=== PATIENT | male | born 1965 ===

== ENCOUNTER 2023-05-16 01:53 | Outpatient (REF) | payer BC, SELFPAY ==
[2023-05-16 10:06] LABS: Hematocrit 24.8 % (42.0-54.0); Hemoglobin 7.9 g/dL (14.0-18.0); Mean Corpuscular HGB Conc 31.9 g/dL (29.9-35.2); Mean Corpuscular Hemoglobin 27.1 pg (25.9-34.0); Mean Corpuscular Volume 85.2 fL (80.0-94.0); Mean Platelet Volume 8.5 fL (9.5-13.5); Platelet Count 352 10^3/uL (150-450); Red Blood Count 2.91 10^6/uL (4.70-6.10); Red Cell Distribution Width 15.8 % (11.0-15.0); White Blood Count 9.1 10^3/uL (4.0-11.0)
[2023-05-16 10:22] LABS: Eosinophils Absolute Manual 0.09 10^3/uL (0.00-0.70); Lymphocytes Absolute Manual 0.91 10^3/uL (1.20-3.80); Metamyelocytes Absolute Manual 0.27; Monocytes Absolute Manual 0.81 10^3/uL (0.30-0.80); Segmented Neut Absolute Manual 6.37 10^3/uL (1.4-6.5)
[2023-05-16 10:23] LABS: Anisocytosis 1+
[2023-05-16 11:03] LABS: Alanine Aminotransferase 7 U/L (16-63); Albumin Globulin Ratio 0.3; Albumin Level 1.5 g/dL (3.4-5.0); Alkaline Phosphatase 134 U/L (46-116); Anion Gap 16.5; Aspartate Amino Transferase 21 U/L (15-37); BUN Creatinine Ratio 17.8; Bilirubin Total 0.3 mg/dL (0.2-1.0); Calcium 8.1 mg/dL (8.5-10.1); Carbon Dioxide 25.3 mmol/L (21.0-32.0); Chloride 97 mmol/L (98-107); Chol HDL Ratio 5.9; Cholesterol 112 mg/dL (<=200); Estimated GFR (African America >60 (>=60); Estimated GFR (Non-African Ame >60 (>=60); Globulin 5.1 g/dL; Glucose 73 mg/dL (74-106); HDL Cholesterol 19 mg/dL (40-60); Magnesium 1.3 mg/dL (1.8-2.4); Sodium 136 mmol/L (136-145); Total Protein 6.6 g/dL (6.4-8.2); Triglycerides 174 mg/dL (<=150); VLDL CHOLESTEROL 34.8 mg/dL
[2023-05-16 13:15] LABS: Estimated Average Glucose 68 mg/dL
[2023-05-16 14:26] LABS: Potassium 2.8 mmol/L (3.5-5.1)
== END 2023-05-16 01:54 | disposition home or self-care (01) ==
LOC: LAB 01:53
PROVIDERS: PCP Family Medicine; Visit Provider Family Medicine
DX: E11.9 Type 2 diabetes mellitus without complications (principal); D50.9 Iron deficiency anemia, unspecified; G06.1 Intraspinal abscess and granuloma; T81.49XD Infection following a procedure, other surgical site, subsequent encounter
CPT/HCPCS: 36415; 80053; 80061; 82306; 83036; 83735; 85007; 85025

== ENCOUNTER 2023-05-18 03:13 | Outpatient (REF) | payer BC, SELFPAY ==
[2023-05-18 08:02] LABS: Anion Gap 12.8; BUN Creatinine Ratio 15.2; Calcium 8.1 mg/dL (8.5-10.1); Carbon Dioxide 27.1 mmol/L (21.0-32.0); Chloride 98 mmol/L (98-107); Estimated GFR (African America >60 (>=60); Estimated GFR (Non-African Ame >60 (>=60); Glucose 85 mg/dL (74-106); Potassium 3.9 mmol/L (3.5-5.1); Sodium 134 mmol/L (136-145)
== END 2023-05-18 03:14 | disposition home or self-care (01) ==
LOC: LAB 03:13
PROVIDERS: PCP Family Medicine; Visit Provider Family Medicine
DX: E87.6 Hypokalemia (principal)
CPT/HCPCS: 36415; 80048

== ENCOUNTER 2023-05-20 01:28 | Outpatient (REF) | payer BC, SELFPAY ==
[2023-05-20 10:59] LABS: BUN Creatinine Ratio 10.5; Calcium 8.5 mg/dL (8.5-10.1); Carbon Dioxide 27.2 mmol/L (21.0-32.0); Chloride 99 mmol/L (98-107); Estimated GFR (African America >60 (>=60); Estimated GFR (Non-African Ame >60 (>=60); Glucose 78 mg/dL (74-106); Potassium 4.2 mmol/L (3.5-5.1); Sodium 136 mmol/L (136-145)
== END 2023-05-20 01:29 | disposition home or self-care (01) ==
LOC: LAB 01:28
PROVIDERS: PCP Family Medicine
DX: E11.9 Type 2 diabetes mellitus without complications (principal); K63.1 Perforation of intestine (nontraumatic)
CPT/HCPCS: 36415; 80048

== ENCOUNTER 2023-05-27 02:29 | Outpatient (REF) | payer BC, SELFPAY ==
[2023-05-27 10:52] LABS: Basophils Absolute Auto 0.1 10^3/uL (0.0-0.1); Eosinophils Absolute Auto 0.1 10^3/uL (0.0-0.7); Eosinophils Percent Auto 1.6 % (0.9-7.0); Hematocrit 31.8 % (42.0-54.0); Hemoglobin 10.1 g/dL (14.0-18.0); Immature Granulocytes Abs Auto 0.12 10^3/uL (0.00-0.03); Immature Granulocytes Pct Auto 1.9 % (0.0-0.5); Lymphocytes Percent Auto 15.3 % (20.5-60.0); Mean Corpuscular HGB Conc 31.8 g/dL (29.9-35.2); Mean Corpuscular Hemoglobin 26.9 pg (25.9-34.0); Mean Corpuscular Volume 84.8 fL (80.0-94.0); Mean Platelet Volume 9.3 fL (9.5-13.5); Monocytes Absolute Auto 0.8 10^3/uL (0.3-0.8); Monocytes Percent Auto 11.9 % (1.7-12.0); Neutrophils Absolute Auto 4.3 10^3/uL (1.4-6.5); Neutrophils Percent Auto 68.3 % (43.0-75.0); Platelet Count 205 10^3/uL (150-450); Red Blood Count 3.75 10^6/uL (4.70-6.10); Red Cell Distribution Width 16.1 % (11.0-15.0); White Blood Count 6.3 10^3/uL (4.0-11.0)
[2023-05-27 11:04] LABS: Anion Gap 11.5; BUN Creatinine Ratio 27.5; Calcium 8.9 mg/dL (8.5-10.1); Carbon Dioxide 28.6 mmol/L (21.0-32.0); Chloride 97 mmol/L (98-107); Estimated GFR (African America >60 (>=60); Estimated GFR (Non-African Ame >60 (>=60); Glucose 87 mg/dL (74-106); Potassium 3.1 mmol/L (3.5-5.1); Sodium 134 mmol/L (136-145)
== END 2023-05-27 02:30 | disposition home or self-care (01) ==
LOC: LAB 02:29
PROVIDERS: PCP Family Medicine; Visit Provider Family Medicine
DX: T81.49XD Infection following a procedure, other surgical site, subsequent encounter (principal); D50.9 Iron deficiency anemia, unspecified
CPT/HCPCS: 36415; 80048; 85025

== ENCOUNTER 2023-05-30 10:25 | Emergency (ER) | payer BC, SELFPAY ==
[2023-05-30] VITALS (20 sets, daily range): BP systolic 90–131; BP diastolic 67–108; PULSE 118–143; RESP 12–29; TEMP 36.6; O2SAT 95–100; BMI 23.0
--- NOTE | 2023-05-30 10:18 | ECG_ITS ---
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
--- NOTE | 2023-05-30 10:18 | CT_ITS ---
The [address] [address] Patient Name: JOHNY BERUMEN MRN: [id number] date: 1965 Sex: M Assigned Patient Location: ER Current Patient Location: ER Accession/Order Number: [id number] Exam Date: 05/30/2023 11:35 Report Date: 05/30/2023 12:12 At the request of: BELINDA MUHAMMAD Procedure: CT abdomen pelvis w con EXAM: CT abdomen pelvis w con HISTORY: recent surgery, can't eat abdominal pain COMPARISON: CT abdomen and pelvis 04/23/2013. TECHNIQUE: Following the intravenous administration of 99 mL of Omnipaque 350, axial soft tissue windows of the abdomen and pelvis were performed with coronal and sagittal reformats. CT dose reduction technique was used including Automated Exposure Control. Findings: There are patchy left lower lobe groundglass opacities with mucous plugging of the adjacent airways. Right lower lobe 1.0 cm nodule. ABDOMEN: There are couple scattered low-attenuation lesions, too small to characterize. The spleen, pancreas, and adrenal glands are unremarkable. There are multiple stones within the gallbladder. Punctate nonobstructing bilateral renal stones. No renal collecting system dilatation. Bilateral low-attenuation lesions, too small to characterize. The visualized portions of the bilateral ureters are nondilated. Evaluation of the bowel is limited given the absence of oral contrast. 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 No bowel obstruction. The aorta is normal caliber. Mild atherosclerotic disease. No enlarged abdominal lymph nodes. Trace amount of free abdominal fluid. Postsurgical changes involving the midline anterior abdominal wall. Pelvis: Small stones within the bladder. The prostate is mildly enlarged. No enlarged pelvic lymph nodes or free pelvic fluid. No aggressive sclerotic or lytic osseous lesions. Multilevel degenerative spondylosis. CT/CT abdomen pelvis w con IMPRESSION: 1. 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 No bowel obstruction. 2. Cholelithiasis. 3. Nonobstructing renal stones. 4. Stones within the bladder. Electronically authenticated by: CRISTIAN STRICKLAND Date: 05/30/2023 12:12
--- NOTE | 2023-05-30 10:18 | XR_ITS ---
The [address] [address] Patient Name: JOHNY BREUMEN MRN: [id number] date: 1965 Sex: M Assigned Patient Location: ER Current Patient Location: ED.MAIN Accession/Order Number: [id number] Exam Date: 05/30/2023 10:36 Report Date: 05/30/2023 11:04 At the request of: BELINDA MUHAMMAD Procedure: XR chest 1V EXAMINATION: XR chest 1V HISTORY: weak ; weakness increasing in severity COMPARISON: No relevant comparison available. FINDINGS: LUNGS: Underexpanded lungs. No significant pulmonary parenchymal abnormalities. VASCULATURE: No increased pulmonary vasculature. PLEURA: No pneumothorax, effusion, or pleural thickening. CARDIAC: No cardiomegaly or cardiac silhouette abnormality. MEDIASTINUM: No visible mass or adenopathy. BONES: No fracture or visible bone lesion. OTHER: Negative. IMPRESSION: 1. No acute cardiopulmonary process, significant chronic changes, or suspicious findings. Electronically authenticated by: JENNY ROSA Date: 05/30/2023 11:04
--- NOTE | 2023-05-30 10:21 | ED.GENADUL1 ---
HPI - General Adult General Chief complaint: Weakness Stated complaint: GENERAL WEAKNESS Time Seen by Provider: 05/30/23 10:32 History of Present Illness HPI narrative: 58-year-old male presents for evaluation. He comes in from [facility]. He is not really sure why he is here. He states he can't eat. He recently had bowel surgery for perforation and has an ostomy and an open wound on his abdomen. He is not sure how long its been since he's been able to eat. He hasn't had a known fever. He was noted to have a fast heartbeat. He doesn't seem to be complaining of abdominal pain or shortness of breath. Related Data Allergies Allergy/AdvReac Type Severity Reaction Status Date / Time No Known Drug Allergies Allergy Verified 05/30/23 10:14 Review of Systems ROS Narrative A ten point review of systems is negative except as noted above. Constitutional Reports: fatigue [facility] Medical History (Updated 05/30/23 @ 14:26 by Kartik Souza MD) Social History Smoking status: Former smoker Exam Narrative Exam Narrative: Nurses note and vital signs reviewed and patient is not hypoxic. General: The patient appears chronically ill. He appears fatigued. Skin: Warm, dry, no pallor noted. There is no rash noted. Head: Normocephalic, atraumatic Eye: Normal conjunctiva, no drainage Ears, Nose, Mouth, and Throat: oral mucosa is dry, Nares patent. Cardiovascular: Regular Rate and Rhythm, and tachycardic Respiratory: Patient is in no distress, no accessory muscle use, lungs are clear to auscultation, no wheezing, rales or rhonchi Back: non-tender GI: ileostomy in place with liquid stool. Open wound present on the abdomen. No purulent drainage or surrounding erythema Musculoskeletal: The patient has no evidence of calf tenderness, no pitting edema, symmetrical pulses noted bilaterally Neurological: awake and alert Psychiatric: Cooperative Constitutional Vital Signs, click to edit/add: Last Vital Signs Temp 97.8 F 05/30/23 10:15 Pulse 118 H 05/30/23 13:45 Resp 15 05/30/23 13:45 BP 131/108 H 05/30/23 13:45 Pulse Ox 99 05/30/23 13:45 O2 Del Method Room Air 05/30/23 10:48 Course Vital Signs Vital signs: Vital Signs Temperature 97.8 F 05/30/23 10:15 Pulse Rate 143 H 05/30/23 10:15 Respiratory Rate 16 05/30/23 10:15 Blood Pressure 96/69 05/30/23 10:15 Pulse Oximetry 96 05/30/23 10:15 Oxygen Delivery Method Room Air 05/30/23 10:15 Temperature 97.8 F 05/30/23 10:15 Pulse Rate 118 H 05/30/23 13:45 Respiratory Rate 15 05/30/23 13:45 Blood Pressure 131/108 H 05/30/23 13:45 Pulse Oximetry 99 05/30/23 13:45 Oxygen Delivery Method Room Air 05/30/23 10:48 Medical Decision Making MDM Narrative Medical decision making narrative: the patient presented with tachycardia and marginal blood pressure with a systolic of ninety. He was given 2 L of IV fluid and his heart rate is coming down and his blood pressure has come up. White count is eighteen thousand, lactic acid 3.0, just above the upper limit of normal. CAT scan shows no evidence of perforation and chest x-ray shows no infiltrate. he was given IV Zosyn and vancomycin and I've spoken to senior training specialist at [facility] who accepts the patient, Dr. James. The patient is agreeable for transfer. Differential Diagnosis Differential Diagnosis: sepsis Medical Records Medical records reviewed: Yes I reviewed the patient's medical records Lab Data Lab results reviewed: Yes I reviewed the patient's lab results Labs: Lab Results 05/30/23 05/30/23 Range/Units 10:20 11:00 WBC 18.4 H (4.0-11.0) 10^3/uL RBC 4.96 (4.70-6.10) 10^6/uL Hgb 13.3 L (14.0-18.0) g/dL Hct 41.5 L (42.0-54.0) % MCV 83.7 (80.0-94.0) fL MCH 26.8 (25.9-34.0) pg MCHC 32.0 (29.9-35.2) g/dL RDW 16.0 H (11.0-15.0) % Plt Count 349 (150-450) 10^3/uL MPV 9.6 (9.5-13.5) fL Neut % (Auto) 90.1 H (43.0-75.0) % Lymph % (Auto) 3.6 L (20.5-60.0) % [place] % (Auto) 5.5 (1.7-12.0) % Eos % (Auto) 0.0 L (0.9-7.0) % Baso % (Auto) 0.3 (0.2-2.0) % Neut # (Auto) 16.6 H (1.4-6.5) 10^3/uL Lymph # (Auto) 0.7 L (1.2-3.8) 10^3/uL [place] # (Auto) 1.0 H (0.3-0.8) 10^3/uL Eos # (Auto) 0.0 (0.0-0.7) 10^3/uL Baso # (Auto) 0.1 (0.0-0.1) 10^3/uL Abs Immat Gran (auto) 0.10 H (0.00-0.03) 10^3/uL Imm/Tot Granulo (auto) 0.5 (0.0-0.5) % Lactate 3.0 H* (0.4-2.0) mmol/L Total Bilirubin 0.6 (0.2-1.0) mg/dL Direct Bilirubin 0.1 (0.0-0.2) mg/dL AST 17 (15-37) U/L ALT 8 L (16-63) U/L Alkaline Phosphatase 148 H (46-116) U/L Troponin I High Sens <4.0 L (4.0-76.1) pg/mL Total Protein 8.7 H (6.4-8.2) g/dL Albumin 3.0 L (3.4-5.0) g/dL Globulin 5.7 g/dL Albumin/Globulin Ratio 0.5 Amylase 60 (25-115) U/L Lipase 140.0 (73.0-393.0) U/L C. difficile Toxin PCR Negative (NEGATIVE) Critical Care Time Critical Care Time Critical Care Time: Yes Total Critical Care Time: 50 Attestation: due to the high probability of sudden and clinically significant deterioration in the patient's condition critical care time was necessary. He was hypotensive and tachycardic and has sepsis. Discharge Plan Discharge Chief Complaint: Weakness Clinical Impression: Sepsis Patient Disposition: [facility] Time of Disposition Decision: 14:25 Discharge Location: [facility] Condition: Fair Mode of Transportation: EMS
[2023-05-30] MEDS: 0.9 % SODIUM CHLORIDE 1,000 ML 1000 ML IV ×2 (10:42→13:43)
[2023-05-30] MEDS: ONDANSETRON PF 4 MG/2 ML VIAL IV (10:42)
[2023-05-30 10:45] LABS: Basophils Absolute Auto 0.1 10^3/uL (0.0-0.1); Basophils Percent Auto 0.3 % (0.2-2.0); Hematocrit 41.5 % (42.0-54.0); Hemoglobin 13.3 g/dL (14.0-18.0); Immature Granulocytes Pct Auto 0.5 % (0.0-0.5); Lymphocytes Absolute Auto 0.7 10^3/uL (1.2-3.8); Lymphocytes Percent Auto 3.6 % (20.5-60.0); Mean Corpuscular Hemoglobin 26.8 pg (25.9-34.0); Mean Corpuscular Volume 83.7 fL (80.0-94.0); Mean Platelet Volume 9.6 fL (9.5-13.5); Monocytes Percent Auto 5.5 % (1.7-12.0); Neutrophils Absolute Auto 16.6 10^3/uL (1.4-6.5); Neutrophils Percent Auto 90.1 % (43.0-75.0); Platelet Count 349 10^3/uL (150-450); Red Blood Count 4.96 10^6/uL (4.70-6.10); White Blood Count 18.4 10^3/uL (4.0-11.0)
[2023-05-30 11:02] LABS: Alanine Aminotransferase 8 U/L (16-63); Albumin Globulin Ratio 0.5; Alkaline Phosphatase 148 U/L (46-116); Amylase 60 U/L (25-115); Aspartate Amino Transferase 17 U/L (15-37); Bilirubin Direct 0.1 mg/dL (0.0-0.2); Bilirubin Total 0.6 mg/dL (0.2-1.0); Globulin 5.7 g/dL; Total Protein 8.7 g/dL (6.4-8.2); Troponin I High Sensitivity <4.0 pg/mL (4.0-76.1)
--- NOTE | 2023-05-30 11:50 | PC.NURSE ---
ileostomy RLQ -- EMPTIED. stool is green and loose. sample collected per physician's order
[2023-05-30 12:38] LABS: C. Difficile PCR NEGATIVE (NEGATIVE)
[2023-05-30] MEDS: PIPERACILLIN SODIUM/TAZOBACTAM 3.375 GM in 0.9 % SODIUM CHLORIDE 50 ML IV (13:43)
[2023-05-30 14:36] LABS: Alanine Aminotransferase 13 U/L (16-63); Albumin Globulin Ratio 0.5; Albumin Level 3.1 g/dL (3.4-5.0); Alkaline Phosphatase 146 U/L (46-116); Anion Gap 22.9; Aspartate Amino Transferase 25 U/L (15-37); BUN Creatinine Ratio 16.4; Bilirubin Total 0.4 mg/dL (0.2-1.0); Calcium 9.8 mg/dL (8.5-10.1); Carbon Dioxide 20.7 mmol/L (21.0-32.0); Chloride 94 mmol/L (98-107); Estimated GFR (African America >60 (>=60); Estimated GFR (Non-African Ame 58 (>=60); Globulin 5.7 g/dL; Glucose 249 mg/dL (74-106); Potassium 5.6 mmol/L (3.5-5.1); Sodium 132 mmol/L (136-145); Total Protein 8.8 g/dL (6.4-8.2)
[2023-05-30] MEDS: VANCOMYCIN HCL 2,000 MG in 0.9 % SODIUM CHLORIDE 500 ML 250 MG IV (14:44)
--- NOTE | 2023-05-30 16:16 | PC.NURSE ---
1500 - Pt has lower abd wound site from bowel perf correction in March - -pt also has ileostomy RLQ. Bag leaked into wound at this time. Old dressing removed, cleaned and new one placed. Sodium chloride irrigation used with non-adherant gauze pad (wet to dry) placed.
[2023-05-30] MEDS: 0.9 % SODIUM CHLORIDE 1,000 ML 200 ML IV (16:25)
[2023-05-30] MEDS: INSULIN REGULAR 300 UNITS/3 ML 10 UNIT INJ (16:25)
[2023-05-30] MEDS: DEXTROSE 50 %-WATER 25 GM/50 ML SYRINGE IV (16:25)
[2023-05-30 16:54] LABS: Bilirubin Urine MODERATE (NEGATIVE); Blood Urine NEGATIVE (NEGATIVE); Glucose Urine UA NEGATIVE (NEGATIVE); Ketones Urine TRACE mg/dL (NEGATIVE); Leukocyte Esterase Urine NEGATIVE (NEGATIVE); Nitrite Urine NEGATIVE (NEGATIVE); Protein Urine 100 mg/dL (NEG/TRACE); Specific Gravity Urine 1.015 (1.005-1.025); Urobilinogen Urine 0.2 EU/dL (0.2-1.0)
--- NOTE | 2023-05-30 16:57 | PC.NURSE ---
Bedside report to [facility] -- pt denies needing anyone called for him. Belongings packaged in bag and sent with patient.
[2023-05-30 17:00] LABS: Clarity Urine SLIGHTLY CLOUDY (CLEAR); Color Urine DK YELLOW (YELLOW); Urine Microscopic Indicated YES
[2023-05-30 17:01] LABS: Bacteria Urine NONE SEEN #/HPF (NONE SEEN); Cast Seen? SEEN #/LPF (NONE SEEN); Crystals Seen? None Seen #/HPF (None Seen); Mucus Urine NONE SEEN (NONE SEEN); RBC Urine NONE SEEN #/HPF (0-2); Squamous Epithelial Cell Urine RARE #/LPF (NONE/RARE); WBC Urine NONE SEEN #/HPF (NONE SEEN)
[2023-05-30 17:02] LABS: Hyaline Casts Urine FEW; Urine Culture Indicated NO
== END 2023-05-30 17:01 | disposition short-term general hospital (02) ==
PROVIDERS: Emergency Provider Emergency Medicine; PCP Family Medicine
DX: A41.9 Sepsis, unspecified organism (principal); Z93.2 Ileostomy status
CPT/HCPCS: 36415; 36591; 71045; 74177; 80048; 80053; 80076; 81003; 81015; 82150; 83605; 83690; 84484; 85025; 87040; 87045; 87493; 93005; 96365; 96366; 96367; 96375; 99285; J3370; Q9967

== ENCOUNTER 2023-06-20 00:57 | Outpatient (REF) | payer BC, SELFPAY ==
[2023-06-20 08:10] LABS: Basophils Absolute Auto 0.1 10^3/uL (0.0-0.1); Basophils Percent Auto 0.8 % (0.2-2.0); Eosinophils Absolute Auto 0.2 10^3/uL (0.0-0.7); Eosinophils Percent Auto 2.1 % (0.9-7.0); Hematocrit 37.4 % (42.0-54.0); Hemoglobin 12.2 g/dL (14.0-18.0); Immature Granulocytes Abs Auto 0.07 10^3/uL (0.00-0.03); Lymphocytes Absolute Auto 1.6 10^3/uL (1.2-3.8); Lymphocytes Percent Auto 22.7 % (20.5-60.0); Mean Corpuscular HGB Conc 32.6 g/dL (29.9-35.2); Mean Corpuscular Hemoglobin 26.1 pg (25.9-34.0); Mean Corpuscular Volume 79.9 fL (80.0-94.0); Mean Platelet Volume 9.3 fL (9.5-13.5); Monocytes Absolute Auto 0.8 10^3/uL (0.3-0.8); Monocytes Percent Auto 10.6 % (1.7-12.0); Neutrophils Absolute Auto 4.4 10^3/uL (1.4-6.5); Neutrophils Percent Auto 62.8 % (43.0-75.0); Platelet Count 260 10^3/uL (150-450); Red Blood Count 4.68 10^6/uL (4.70-6.10); Red Cell Distribution Width 14.6 % (11.0-15.0); White Blood Count 7.1 10^3/uL (4.0-11.0)
[2023-06-20 11:44] LABS: Alanine Aminotransferase 12 U/L (16-63); Albumin Globulin Ratio 0.8; Alkaline Phosphatase 121 U/L (46-116); Anion Gap 15.1; Aspartate Amino Transferase 18 U/L (15-37); BUN Creatinine Ratio 44.2; Bilirubin Total 0.2 mg/dL (0.2-1.0); Calcium 9.4 mg/dL (8.5-10.1); Chloride 94 mmol/L (98-107); Estimated GFR (African America >60 (>=60); Estimated GFR (Non-African Ame >60 (>=60); Glucose 92 mg/dL (74-106); Magnesium 1.6 mg/dL (1.8-2.4); Potassium 3.1 mmol/L (3.5-5.1); Sodium 130 mmol/L (136-145)
== END 2023-06-20 00:58 | disposition home or self-care (01) ==
LOC: LAB 00:57
PROVIDERS: PCP Family Medicine; Visit Provider Family Medicine
DX: E11.9 Type 2 diabetes mellitus without complications (principal); E55.9 Vitamin D deficiency, unspecified
CPT/HCPCS: 36415; 80053; 82306; 83735; 85025

== ENCOUNTER 2023-06-22 06:40 | Outpatient (REF) | payer BC, SELFPAY ==
[2023-06-22 10:06] LABS: Anion Gap 12.3; BUN Creatinine Ratio 34.3; Calcium 10.4 mg/dL (8.5-10.1); Carbon Dioxide 28.5 mmol/L (21.0-32.0); Chloride 96 mmol/L (98-107); Estimated GFR (African America >60 (>=60); Estimated GFR (Non-African Ame >60 (>=60); Glucose 98 mg/dL (74-106); Potassium 4.8 mmol/L (3.5-5.1); Sodium 132 mmol/L (136-145)
== END 2023-06-22 06:41 | disposition home or self-care (01) ==
LOC: LAB 06:40
PROVIDERS: PCP Family Medicine; Visit Provider Family Medicine
DX: E87.6 Hypokalemia (principal)
CPT/HCPCS: 36415; 80048

== ENCOUNTER 2023-06-24 02:17 | Outpatient (REF) | payer BC, SELFPAY ==
[2023-06-24 10:26] LABS: Anion Gap 8.7; BUN Creatinine Ratio 36.4; Carbon Dioxide 25.8 mmol/L (21.0-32.0); Chloride 103 mmol/L (98-107); Estimated GFR (African America >60 (>=60); Estimated GFR (Non-African Ame >60 (>=60); Glucose 112 mg/dL (74-106); Potassium 3.5 mmol/L (3.5-5.1); Sodium 134 mmol/L (136-145)
== END 2023-06-24 02:18 | disposition home or self-care (01) ==
LOC: LAB 02:17
PROVIDERS: PCP Family Medicine; Visit Provider Family Medicine
DX: E87.6 Hypokalemia (principal)
CPT/HCPCS: 36415; 80048

== ENCOUNTER 2023-06-29 04:30 | Outpatient (REF) | payer BC, SELFPAY ==
[2023-06-29 15:55] LABS: Basophils Percent Auto 0.2 % (0.2-2.0); Eosinophils Percent Auto 0.7 % (0.9-7.0); Hematocrit 30.5 % (42.0-54.0); Hemoglobin 9.9 g/dL (14.0-18.0); Immature Granulocytes Abs Auto 0.03 10^3/uL (0.00-0.03); Immature Granulocytes Pct Auto 0.7 % (0.0-0.5); Lymphocytes Absolute Auto 0.6 10^3/uL (1.2-3.8); Lymphocytes Percent Auto 13.7 % (20.5-60.0); Mean Corpuscular HGB Conc 32.5 g/dL (29.9-35.2); Mean Corpuscular Hemoglobin 26.3 pg (25.9-34.0); Mean Corpuscular Volume 81.1 fL (80.0-94.0); Mean Platelet Volume 10.3 fL (9.5-13.5); Monocytes Absolute Auto 0.1 10^3/uL (0.3-0.8); Monocytes Percent Auto 2.4 % (1.7-12.0); Neutrophils Absolute Auto 3.4 10^3/uL (1.4-6.5); Neutrophils Percent Auto 82.3 % (43.0-75.0); Platelet Count 136 10^3/uL (150-450); Red Blood Count 3.76 10^6/uL (4.70-6.10); Red Cell Distribution Width 14.6 % (11.0-15.0); White Blood Count 4.2 10^3/uL (4.0-11.0)
[2023-06-29 16:16] LABS: Alanine Aminotransferase 31 U/L (16-63); Albumin Globulin Ratio 0.7; Albumin Level 2.4 g/dL (3.4-5.0); Alkaline Phosphatase 108 U/L (46-116); Anion Gap 10.5; Aspartate Amino Transferase 49 U/L (15-37); BUN Creatinine Ratio 44.4; Bilirubin Total 0.2 mg/dL (0.2-1.0); Calcium 8.5 mg/dL (8.5-10.1); Carbon Dioxide 26.9 mmol/L (21.0-32.0); Chloride 104 mmol/L (98-107); Estimated GFR (African America >60 (>=60); Estimated GFR (Non-African Ame >60 (>=60); Globulin 3.5 g/dL; Glucose 144 mg/dL (74-106); Magnesium 1.1 mg/dL (1.8-2.4); Phosphorus 3.3 mg/dL (2.6-4.7); Potassium 3.4 mmol/L (3.5-5.1); Prealbumin 19.3 mg/dL (20.9-45.5); Sodium 138 mmol/L (136-145); Total Protein 5.9 g/dL (6.4-8.2); Triglycerides 157 mg/dL (<=150)
== END 2023-06-29 04:31 | disposition home or self-care (01) ==
LOC: LAB 04:30
PROVIDERS: PCP Family Medicine; Visit Provider Family Medicine
DX: Z79.899 Other long term (current) drug therapy (principal); D50.9 Iron deficiency anemia, unspecified; A41.9 Sepsis, unspecified organism; E55.9 Vitamin D deficiency, unspecified; E43 Unspecified severe protein-calorie malnutrition
CPT/HCPCS: 36415; 80053; 83735; 84100; 84134; 84478; 85014; 85018; 85025

== ENCOUNTER 2023-07-06 02:32 | Outpatient (REF) | payer BC, SELFPAY ==
[2023-07-06 07:51] LABS: Hematocrit 25.5 % (42.0-54.0); Hemoglobin 8.3 g/dL (14.0-18.0)
[2023-07-06 08:21] LABS: Alanine Aminotransferase 13 U/L (16-63); Albumin Globulin Ratio 0.8; Albumin Level 2.3 g/dL (3.4-5.0); Alkaline Phosphatase 91 U/L (46-116); Anion Gap 9.6; Aspartate Amino Transferase 15 U/L (15-37); BUN Creatinine Ratio 44.2; Bilirubin Total 0.2 mg/dL (0.2-1.0); Calcium 8.3 mg/dL (8.5-10.1); Carbon Dioxide 26.5 mmol/L (21.0-32.0); Chloride 103 mmol/L (98-107); Estimated GFR (African America >60 (>=60); Estimated GFR (Non-African Ame >60 (>=60); Globulin 2.9 g/dL; Glucose 157 mg/dL (74-106); Magnesium 1.9 mg/dL (1.8-2.4); Phosphorus 3.4 mg/dL (2.6-4.7); Potassium 3.1 mmol/L (3.5-5.1); Prealbumin 22.4 mg/dL (20.9-45.5); Sodium 136 mmol/L (136-145); Total Protein 5.2 g/dL (6.4-8.2); Triglycerides 143 mg/dL (<=150)
== END 2023-07-06 02:33 | disposition home or self-care (01) ==
LOC: LAB 02:32
PROVIDERS: PCP Family Medicine; Visit Provider Family Medicine
DX: Z79.899 Other long term (current) drug therapy (principal)
CPT/HCPCS: 36415; 80053; 83735; 84100; 84134; 84478; 85014; 85018

== ENCOUNTER 2023-07-14 00:15 | Outpatient (REF) | payer BC, SELFPAY ==
[2023-07-14 01:09] LABS: Albumin Level 2.7 g/dL (3.4-5.0); Alkaline Phosphatase 91 U/L (46-116); Anion Gap 3.7; Aspartate Amino Transferase 7 U/L (15-37); BUN Creatinine Ratio 48.9; Bilirubin Total 0.2 mg/dL (0.2-1.0); Calcium 8.3 mg/dL (8.5-10.1); Carbon Dioxide 29.1 mmol/L (21.0-32.0); Chloride 98 mmol/L (98-107); Estimated GFR (African America >60 (>=60); Estimated GFR (Non-African Ame >60 (>=60); Globulin 2.8 g/dL; Glucose 131 mg/dL (74-106); Magnesium 2.3 mg/dL (1.8-2.4); Phosphorus 3.1 mg/dL (2.6-4.7); Potassium 3.8 mmol/L (3.5-5.1); Prealbumin 23.2 mg/dL (20.9-45.5); Sodium 127 mmol/L (136-145); Total Protein 5.5 g/dL (6.4-8.2); Triglycerides 105 mg/dL (<=150)
[2023-07-14 01:10] LABS: Hematocrit 24.7 % (42.0-54.0); Hemoglobin 7.8 g/dL (14.0-18.0)
[2023-07-14 01:27] LABS: Alanine Aminotransferase <6 U/L (16-63)
== END 2023-07-14 00:16 | disposition home or self-care (01) ==
LOC: LAB 00:15
PROVIDERS: PCP Family Medicine; Visit Provider Family Medicine
DX: Z79.899 Other long term (current) drug therapy (principal)
CPT/HCPCS: 36415; 80053; 83735; 84100; 84134; 84478; 85014; 85018

== ENCOUNTER 2023-07-18 03:51 | Outpatient (REF) | payer BC, SELFPAY ==
[2023-07-18 09:50] LABS: Basophils Percent Auto 0.8 % (0.2-2.0); Eosinophils Absolute Auto 0.1 10^3/uL (0.0-0.7); Hemoglobin 7.4 g/dL (14.0-18.0); Lymphocytes Absolute Auto 0.9 10^3/uL (1.2-3.8); Lymphocytes Percent Auto 35.6 % (20.5-60.0); Mean Corpuscular HGB Conc 33.5 g/dL (29.9-35.2); Mean Corpuscular Hemoglobin 25.5 pg (25.9-34.0); Mean Corpuscular Volume 76.2 fL (80.0-94.0); Mean Platelet Volume 9.8 fL (9.5-13.5); Monocytes Absolute Auto 0.3 10^3/uL (0.3-0.8); Monocytes Percent Auto 12.8 % (1.7-12.0); Neutrophils Absolute Auto 1.2 10^3/uL (1.4-6.5); Neutrophils Percent Auto 48.8 % (43.0-75.0); Platelet Count 130 10^3/uL (150-450); Red Cell Distribution Width 13.6 % (11.0-15.0); White Blood Count 2.5 10^3/uL (4.0-11.0)
[2023-07-18 10:32] LABS: Hematocrit 22.1 % (42.0-54.0)
== END 2023-07-18 03:52 | disposition home or self-care (01) ==
LOC: LAB 03:51
PROVIDERS: PCP Family Medicine; Visit Provider Family Medicine
DX: D64.9 Anemia, unspecified (principal)
CPT/HCPCS: 36415; 85025

== ENCOUNTER 2023-07-20 03:51 | Outpatient (REF) | payer BC, SELFPAY ==
[2023-07-20 09:17] LABS: Hemoglobin 7.2 g/dL (14.0-18.0)
[2023-07-20 13:07] LABS: Alanine Aminotransferase <6 U/L (16-63); Albumin Globulin Ratio 0.9; Albumin Level 2.6 g/dL (3.4-5.0); Alkaline Phosphatase 94 U/L (46-116); Anion Gap 8.3; Aspartate Amino Transferase 10 U/L (15-37); BUN Creatinine Ratio 30.4; Bilirubin Total 0.2 mg/dL (0.2-1.0); Calcium 8.3 mg/dL (8.5-10.1); Carbon Dioxide 29.2 mmol/L (21.0-32.0); Chloride 107 mmol/L (98-107); Estimated GFR (African America >60 (>=60); Estimated GFR (Non-African Ame >60 (>=60); Globulin 2.9 g/dL; Glucose 79 mg/dL (74-106); Magnesium 1.8 mg/dL (1.8-2.4); Phosphorus 3.8 mg/dL (2.6-4.7); Potassium 3.5 mmol/L (3.5-5.1); Prealbumin 21.1 mg/dL (20.9-45.5); Sodium 141 mmol/L (136-145); Total Protein 5.5 g/dL (6.4-8.2); Triglycerides 134 mg/dL (<=150)
== END 2023-07-20 03:52 | disposition home or self-care (01) ==
LOC: LAB 03:51
PROVIDERS: PCP Family Medicine; Visit Provider Family Medicine
DX: D64.9 Anemia, unspecified (principal); Z51.81 Encounter for therapeutic drug level monitoring; Z79.899 Other long term (current) drug therapy
CPT/HCPCS: 36415; 80053; 83735; 84100; 84134; 84478; 85014; 85018

== ENCOUNTER 2023-07-22 01:18 | Outpatient (REF) | payer BC, SELFPAY ==
[2023-07-22 11:01] LABS: Hematocrit 21.5 % (42.0-54.0)
== END 2023-07-22 01:19 | disposition home or self-care (01) ==
LOC: LAB 01:18
PROVIDERS: PCP Family Medicine; Visit Provider Family Medicine
DX: D64.9 Anemia, unspecified (principal)
CPT/HCPCS: 36415; 85014; 85018; 87070; 87150; 87186

== ENCOUNTER 2023-07-22 13:25 | Outpatient (RCR) | payer BC, SELFPAY ==
[2023-07-22] VITALS (7 sets, daily range): BP systolic 82–109; BP diastolic 46–77; PULSE 73–83; RESP 14–16; TEMP 36.4–36.8; O2SAT 97–98
[2023-07-22] MEDS: 0.9 % SODIUM CHLORIDE 250 ML 30 ML IV (15:29)
[2023-07-22] MEDS: FUROSEMIDE 20 MG/2 ML VIAL IV (17:45)
== END 2023-08-20 12:00 | disposition home or self-care (01) ==
LOC: LAB 13:25
PROVIDERS: PCP Family Medicine; Visit Provider Family Medicine
DX: D64.9 Anemia, unspecified (principal)
CPT/HCPCS: 36415; 36430; 36592; 85014; 85018; 86850; 86900; 86901; 86920; 87070; 87150; 87186; P9016

== ENCOUNTER 2023-07-27 07:29 | Outpatient (REF) | payer BC, SELFPAY ==
[2023-07-27 08:27] LABS: Hematocrit 24.9 % (42.0-54.0)
[2023-07-27 09:51] LABS: Alanine Aminotransferase 9 U/L (16-63); Albumin Globulin Ratio 0.9; Albumin Level 2.6 g/dL (3.4-5.0); Alkaline Phosphatase 107 U/L (46-116); Anion Gap 11.4; Aspartate Amino Transferase 11 U/L (15-37); BUN Creatinine Ratio 39.3; Bilirubin Total 0.2 mg/dL (0.2-1.0); Calcium 8.4 mg/dL (8.5-10.1); Carbon Dioxide 26.7 mmol/L (21.0-32.0); Chloride 102 mmol/L (98-107); Estimated GFR (African America >60 (>=60); Estimated GFR (Non-African Ame >60 (>=60); Globulin 2.9 g/dL; Glucose 125 mg/dL (74-106); Magnesium 1.8 mg/dL (1.8-2.4); Phosphorus 3.3 mg/dL (2.6-4.7); Potassium 3.1 mmol/L (3.5-5.1); Prealbumin 24.5 mg/dL (20.9-45.5); Sodium 137 mmol/L (136-145); Total Protein 5.5 g/dL (6.4-8.2); Triglycerides 101 mg/dL (<=150)
== END 2023-07-27 07:30 | disposition home or self-care (01) ==
LOC: LAB 07:29
PROVIDERS: PCP Family Medicine; Visit Provider Family Medicine
DX: Z51.81 Encounter for therapeutic drug level monitoring (principal); Z79.899 Other long term (current) drug therapy
CPT/HCPCS: 36415; 80053; 83735; 84100; 84134; 84478; 85014; 85018

== ENCOUNTER 2023-08-01 00:41 | Outpatient (REF) | payer BC, SELFPAY ==
[2023-08-01 07:42] LABS: Hematocrit 24.1 % (42.0-54.0); Hemoglobin 8.2 g/dL (14.0-18.0)
[2023-08-01 07:52] LABS: Alanine Aminotransferase 8 U/L (16-63); Albumin Globulin Ratio 0.9; Albumin Level 2.7 g/dL (3.4-5.0); Alkaline Phosphatase 116 U/L (46-116); Anion Gap 9.1; Aspartate Amino Transferase 10 U/L (15-37); BUN Creatinine Ratio 53.8; Bilirubin Total 0.3 mg/dL (0.2-1.0); Calcium 8.5 mg/dL (8.5-10.1); Carbon Dioxide 27.5 mmol/L (21.0-32.0); Chloride 99 mmol/L (98-107); Estimated GFR (African America >60 (>=60); Estimated GFR (Non-African Ame >60 (>=60); Globulin 2.9 g/dL; Glucose 85 mg/dL (74-106); Magnesium 1.9 mg/dL (1.8-2.4); Phosphorus 3.4 mg/dL (2.6-4.7); Potassium 3.6 mmol/L (3.5-5.1); Sodium 132 mmol/L (136-145); Total Protein 5.6 g/dL (6.4-8.2); Triglycerides 87 mg/dL (<=150)
== END 2023-08-01 00:42 | disposition home or self-care (01) ==
LOC: LAB 00:41
PROVIDERS: PCP Family Medicine; Visit Provider Family Medicine
DX: Z79.899 Other long term (current) drug therapy (principal)
CPT/HCPCS: 36415; 80053; 80202; 83735; 84100; 84134; 84478; 85014; 85018

== ENCOUNTER 2023-08-03 03:06 | Outpatient (REF) | payer BC, SELFPAY ==
[2023-08-03 07:52] LABS: Alanine Aminotransferase 9 U/L (16-63); Albumin Level 2.6 g/dL (3.4-5.0); Alkaline Phosphatase 110 U/L (46-116); Anion Gap 14.4; Aspartate Amino Transferase 11 U/L (15-37); BUN Creatinine Ratio 45.5; Bilirubin Total 0.4 mg/dL (0.2-1.0); Calcium 8.4 mg/dL (8.5-10.1); Carbon Dioxide 25.2 mmol/L (21.0-32.0); Chloride 96 mmol/L (98-107); Estimated GFR (African America >60 (>=60); Estimated GFR (Non-African Ame >60 (>=60); Globulin 2.5 g/dL; Glucose 81 mg/dL (74-106); Magnesium 1.8 mg/dL (1.8-2.4); Phosphorus 3.5 mg/dL (2.6-4.7); Potassium 3.6 mmol/L (3.5-5.1); Prealbumin 25.7 mg/dL (20.9-45.5); Sodium 132 mmol/L (136-145); Total Protein 5.1 g/dL (6.4-8.2); Triglycerides 92 mg/dL (<=150)
[2023-08-03 08:18] LABS: Hematocrit 23.4 % (42.0-54.0)
== END 2023-08-03 03:07 | disposition home or self-care (01) ==
LOC: LAB 03:06
PROVIDERS: PCP Family Medicine; Visit Provider Family Medicine
DX: Z51.81 Encounter for therapeutic drug level monitoring (principal); Z79.899 Other long term (current) drug therapy
CPT/HCPCS: 36415; 80053; 83735; 84100; 84134; 84478; 85014; 85018

== ENCOUNTER 2023-08-03 11:59 | Emergency (ER) | payer BC, SELFPAY ==
[2023-08-03] VITALS (46 sets, daily range): BP systolic 104–114; BP diastolic 63–74; PULSE 87–113; RESP 11–20; TEMP 36.5–36.7; O2SAT 88–100; BMI 19.2
--- NOTE | 2023-08-03 12:15 | ECG_ITS ---
The 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
--- NOTE | 2023-08-03 12:17 | ED_ITS ---
HPI - Nausea/Vomiting/Diarrhea General Chief complaint: Nausea/Vomiting/Diarrhea Stated complaint: VOMITING Time Seen by Provider: 08/03/23 12:02 Source: patient Mode of arrival: ambulance Limitations: no limitations History of Present Illness HPI Narrative: 58-year-old male presents for not entirely clear reasons. He comes in from an [facility] and has vague complaints about not being able to put on weight for many mon ths. He's had ongoing nausea. He had ileostomy placed earlier this year. He hasn't had a fever. he's had small amounts of vomiting every day which is not different. He is not complaining to me of any abdominal pain. Related Data Home Medications Medication Instructions Recorded Confirmed D5 % and 0.9 % sodium chloride 1,000 ml IV DAILY 08/03/23 08/03/23 acetaminophen 325 mg capsule 325 mg PO Q6H PRN pain 08/03/23 08/03/23 (Tylenol) cholecalciferol (vitamin D3) 125 5,000 unit PO QWEEK 08/03/23 08/03/23 mcg (5,000 unit) capsule levofloxacin 500 mg tablet mg 08/03/23 levofloxacin 750 mg/150 mL in 5 % 750 mg IV DAILY 08/03/23 08/03/23 dextrose intravenous piggyback loperamide 2 mg capsule 2 mg PO TID 08/03/23 08/03/23 magnesium oxide 400 mg PO DAILY 08/03/23 08/03/23 midodrine 2.5 mg tablet 2.5 mg PO TID 08/03/23 08/03/23 mirtazapine 30 mg tablet 30 mg PO DAILY 08/03/23 08/03/23 ondansetron HCl 4 mg tablet 4 mg PO ACHS 08/03/23 08/03/23 pantoprazole 40 mg tablet,delayed 40 mg PO BID 08/03/23 08/03/23 release (Protonix) potassium chloride 20 mEq/15 mL 30 meq PO BID 08/03/23 08/03/23 oral liquid vancomycin 1 gram/200 mL in 0.9 % 1 g IV Q8H 08/03/23 08/03/23 sod. chloride intravenous piggyback Allergies Allergy/AdvReac Type Severity Reaction Status Date / Time No Known Drug Allergies Allergy Verified 08/03/23 15:01 Review of Systems ROS Narrative A ten point review of systems is negative except as noted above. Constitutional Reports: change in weight Gastrointestinal Reports: nausea and vomiting [facility] Medical History (Updated 08/03/23 @ 15:05 by Kartik Souza MD) Social History Smoking status: Former smoker Exam Narrative Exam Narrative: Nurses note and vital signs reviewed and patient is not hypoxic. General: The patient appears well and in no apparent distress. Patient is resting comfortably on cart. Skin: Warm, dry, no pallor noted. There is no rash noted. Head: Normocephalic, atraumatic Eye: Normal conjunctiva, no drainage Ears, Nose, Mouth, and Throat: oral mucosa is minimally dry. Lips are slightly cracked. Cardiovascular: Regular Rate and Rhythm Respiratory: Patient is in no distress, no accessory muscle use, lungs are clear to auscultation, no wheezing, rales or rhonchi Back: non-tender GI: soft and not apparently tender and nondistended. Ileostomy in place and is functioning. There is a small healing wound in the midline. Musculoskeletal: The patient has no evidence of calf tenderness, no pitting edema, symmetrical pulses noted bilaterally Neurological: A&O x4, normal speech Psychiatric: Cooperative Constitutional Vital Signs, click to edit/add: Last Vital Signs Temp 97.7 F 08/03/23 12:01 Pulse 92 H 08/03/23 13:40 Resp 14 08/03/23 13:40 BP 104/63 08/03/23 12:01 Pulse Ox 99 08/03/23 13:40 O2 Del Method Room Air 08/03/23 12:01 Course Vital Signs Vital signs: Vital Signs Temperature 97.7 F 08/03/23 12:01 Pulse Rate 107 H 08/03/23 12:01 Respiratory Rate 16 08/03/23 12:01 Blood Pressure 104/63 08/03/23 12:01 Pulse Oximetry 99 08/03/23 12:01 Oxygen Delivery Method Room Air 08/03/23 12:01 Temperature 97.7 F 08/03/23 12:01 Pulse Rate 92 H 08/03/23 13:40 Respiratory Rate 14 08/03/23 13:40 Blood Pressure 104/63 08/03/23 12:01 Pulse Oximetry 99 08/03/23 13:40 Oxygen Delivery Method Room Air 08/03/23 12:01 MDM - Nausea/Vomiting/Diarrhea MDM Narrative Medical decision making narrative: his workup here is negative. There is no indication for admission the hospital. I suspect a large part of this issue is depression. Treatment diagnosis and follow-up were discussed with the patient. Differential Diagnosis Differential diagnosis: Likely other (depression, acute kidney injury, dehydration, anemia, urinary tract infection, pneumonia) Lab Data Attestation: I reviewed the patient's lab results. Labs: Lab Results 08/03/23 08/03/23 Range/Units 12:39 14:30 WBC 4.9 (4.0-11.0) 10^3/uL RBC 3.09 L (4.70-6.10) 10^6/uL Hgb 8.1 L (14.0-18.0) g/dL Hct 23.1 L* (42.0-54.0) % MCV 74.8 L (80.0-94.0) fL MCH 26.2 (25.9-34.0) pg MCHC 35.1 (29.9-35.2) g/dL RDW 14.0 (11.0-15.0) % Plt Count 62 L (150-450) 10^3/uL MPV 10.5 (9.5-13.5) fL Neut % (Auto) 64.7 (43.0-75.0) % Lymph % (Auto) 21.9 (20.5-60.0) % [place] % (Auto) 5.5 (1.7-12.0) % Eos % (Auto) 7.1 H (0.9-7.0) % Baso % (Auto) 0.4 (0.2-2.0) % Neut # (Auto) 3.2 (1.4-6.5) 10^3/uL Lymph # (Auto) 1.1 L (1.2-3.8) 10^3/uL [place] # (Auto) 0.3 (0.3-0.8) 10^3/uL Eos # (Auto) 0.4 (0.0-0.7) 10^3/uL Baso # (Auto) 0.0 (0.0-0.1) 10^3/uL Abs Immat Gran (auto) 0.02 (0.00-0.03) 10^3/uL Imm/Tot Granulo (auto) 0.4 (0.0-0.5) % Sodium 136 (136-145) mmol/L Potassium 3.8 (3.5-5.1) mmol/L Chloride 98 (98-107) mmol/L Carbon Dioxide 27.4 (21.0-32.0) mmol/L Anion Gap 14.4 BUN 33.0 H (7.0-18.0) mg/dL Creatinine 0.61 L (0.70-1.30) mg/dL Est GFR ( Amer) >60 (>=60) Est GFR (Non-Af Amer) >60 (>=60) BUN/Creatinine Ratio 54.1 Glucose 95 (74-106) mg/dL Calcium 8.5 (8.5-10.1) mg/dL Total Bilirubin 0.3 (0.2-1.0) mg/dL Direct Bilirubin <0.1 (0.0-0.2) mg/dL AST 10 L (15-37) U/L ALT 9 L (16-63) U/L Alkaline Phosphatase 104 (46-116) U/L Total Protein 5.4 L (6.4-8.2) g/dL Albumin 2.6 L (3.4-5.0) g/dL Globulin 2.8 g/dL Albumin/Globulin Ratio 0.9 Amylase 77 (25-115) U/L Lipase 202.0 (73.0-393.0) U/L Urine Color Lt. yellow (YELLOW) Urine Clarity Clear (CLEAR) Urine pH 6.0 (5.0-9.0) Ur Specific [place] 1.020 (1.005-1.025) Urine Protein Negative (NEG/TRACE) mg/dL Urine Glucose (UA) Negative (NEGATIVE) mg/dL Urine Ketones Trace A (NEGATIVE) mg/dL Urine Occult Blood Negative (NEGATIVE) Urine Nitrite Negative (NEGATIVE) Urine Bilirubin Negative (NEGATIVE) Urine Urobilinogen 0.2 (0.2-1.0) EU/dL Ur Leukocyte Esterase Negative (NEGATIVE) Urine RBC 2-5 A (0-2) #/HPF Urine WBC 0-2 A (NONE SEEN) #/HPF Ur Squamous Epith Cells Rare (NONE/RARE) #/LPF Urine Crystals Seen A (None Seen) #/HPF Amorphous Sediment Rare Urine Bacteria Trace A (NONE SEEN) #/HPF Urine Casts None seen (NONE SEEN) #/LPF Urine Mucus None seen (NONE SEEN) Ur Culture Indicated? No Imaging Data Chest x-ray: Radiologist's impression: Procedure: XR chest 1V EXAMINATION: XR chest 1V HISTORY: weak COMPARISON: 05/30/2023 TECHNIQUE: Portable FINDINGS: LUNGS: No significant pulmonary parenchymal abnormalities. VASCULATURE: No increased pulmonary vasculature. PLEURA: No pneumothorax, effusion, or pleural thickening. CARDIAC: No cardiomegaly or cardiac silhouette abnormality. MEDIASTINUM: No visible mass or adenopathy. BONES: No fracture or visible bone lesion. OTHER: Right PICC catheter tip projects over the distal superior vena cava IMPRESSION: Clear lungs Electronically authenticated by: MICK LIND Date: 08/03/2023 Discharge Plan Discharge Chief Complaint: Nausea/Vomiting/Diarrhea Clinical Impression: Generalized weakness, Poor nutrition Patient Disposition: [facility] Time of Disposition Decision: 15:04 Condition: Fair Mode of Transportation: EMS Instructions: Weakness (ED) Stand Alone Forms: Portal Instructions Referrals: BHARGAVI ALEXANDRA [Primary Care Provider] - 1 week
[2023-08-03] MEDS: ONDANSETRON PF 4 MG/2 ML VIAL IV (12:22)
[2023-08-03] MEDS: 0.9 % SODIUM CHLORIDE 1,000 ML 1000 ML IV (12:22)
--- NOTE | 2023-08-03 12:52 | XR_ITS ---
The [place] [id number] Patient Name: JOHNY BERUMEN MRN: [id number] date: 1965 Sex: M Assigned Patient Location: ER Current Patient Location: ER Accession/Order Number: [id number] Exam Date: 08/03/2023 12:45 Report Date: 08/03/2023 13:00 At the request of: BELINDA MUHAMMAD Procedure: XR chest 1V EXAMINATION: XR chest 1V HISTORY: weak COMPARISON: 05/30/2023 TECHNIQUE: Portable FINDINGS: LUNGS: No significant pulmonary parenchymal abnormalities. VASCULATURE: No increased pulmonary vasculature. PLEURA: No pneumothorax, effusion, or pleural thickening. CARDIAC: No cardiomegaly or cardiac silhouette abnormality. MEDIASTINUM: No visible mass or adenopathy. BONES: No fracture or visible bone lesion. OTHER: Right PICC catheter tip projects over the distal superior vena cava XR/XR chest 1V IMPRESSION: Clear lungs Electronically authenticated by: MICK LIND Date: 08/03/2023 13:00
[2023-08-03 12:53] LABS: Basophils Percent Auto 0.4 % (0.2-2.0); Eosinophils Absolute Auto 0.4 10^3/uL (0.0-0.7); Eosinophils Percent Auto 7.1 % (0.9-7.0); Hemoglobin 8.1 g/dL (14.0-18.0); Immature Granulocytes Abs Auto 0.02 10^3/uL (0.00-0.03); Immature Granulocytes Pct Auto 0.4 % (0.0-0.5); Lymphocytes Absolute Auto 1.1 10^3/uL (1.2-3.8); Lymphocytes Percent Auto 21.9 % (20.5-60.0); Mean Corpuscular HGB Conc 35.1 g/dL (29.9-35.2); Mean Corpuscular Hemoglobin 26.2 pg (25.9-34.0); Mean Corpuscular Volume 74.8 fL (80.0-94.0); Mean Platelet Volume 10.5 fL (9.5-13.5); Monocytes Absolute Auto 0.3 10^3/uL (0.3-0.8); Monocytes Percent Auto 5.5 % (1.7-12.0); Neutrophils Absolute Auto 3.2 10^3/uL (1.4-6.5); Neutrophils Percent Auto 64.7 % (43.0-75.0); Platelet Count 62 10^3/uL (150-450); Red Blood Count 3.09 10^6/uL (4.70-6.10); White Blood Count 4.9 10^3/uL (4.0-11.0)
[2023-08-03 12:58] LABS: Anion Gap 14.4; BUN Creatinine Ratio 54.1; Calcium 8.5 mg/dL (8.5-10.1); Carbon Dioxide 27.4 mmol/L (21.0-32.0); Chloride 98 mmol/L (98-107); Estimated GFR (African America >60 (>=60); Estimated GFR (Non-African Ame >60 (>=60); Glucose 95 mg/dL (74-106); Potassium 3.8 mmol/L (3.5-5.1); Sodium 136 mmol/L (136-145)
[2023-08-03 13:04] LABS: Alanine Aminotransferase 9 U/L (16-63); Albumin Globulin Ratio 0.9; Albumin Level 2.6 g/dL (3.4-5.0); Alkaline Phosphatase 104 U/L (46-116); Amylase 77 U/L (25-115); Aspartate Amino Transferase 10 U/L (15-37); Bilirubin Direct <0.1 mg/dL (0.0-0.2); Bilirubin Total 0.3 mg/dL (0.2-1.0); Globulin 2.8 g/dL; Total Protein 5.4 g/dL (6.4-8.2)
[2023-08-03 13:23] LABS: Hematocrit 23.1 % (42.0-54.0)
[2023-08-03 14:42] LABS: Bilirubin Urine NEGATIVE (NEGATIVE); Blood Urine NEGATIVE (NEGATIVE); Clarity Urine CLEAR (CLEAR); Color Urine LT. YELLOW (YELLOW); Glucose Urine UA NEGATIVE (NEGATIVE); Ketones Urine TRACE mg/dL (NEGATIVE); Leukocyte Esterase Urine NEGATIVE (NEGATIVE); Nitrite Urine NEGATIVE (NEGATIVE); Protein Urine NEGATIVE (NEG/TRACE); Urobilinogen Urine 0.2 EU/dL (0.2-1.0)
[2023-08-03 15:00] LABS: Bacteria Urine TRACE #/HPF (NONE SEEN); Mucus Urine NONE SEEN (NONE SEEN); WBC Urine 0-2 #/HPF (NONE SEEN)
[2023-08-03 15:01] LABS: Cast Seen? NONE SEEN #/LPF (NONE SEEN); Squamous Epithelial Cell Urine RARE #/LPF (NONE/RARE); Urine Culture Indicated NO
[2023-08-03 15:02] LABS: Amorphous Sediment Urine RARE; Crystals Seen? Seen #/HPF (None Seen)
--- NOTE | 2023-08-03 16:41 | PC.NURSE ---
PICC line ports flushed with 20 mls saline each port. Flush easily but no blood return
== END 2023-08-03 19:40 ==
PROVIDERS: Emergency Provider Emergency Medicine; PCP Family Medicine
DX: Z51.81 Encounter for therapeutic drug level monitoring (principal); Z79.899 Other long term (current) drug therapy; R53.1 Weakness; E63.9 Nutritional deficiency, unspecified; Z93.2 Ileostomy status; Z87.891 Personal history of nicotine dependence
CPT/HCPCS: 36415; 71045; 80048; 80053; 80076; 81001; 82150; 83690; 83735; 84100; 84134; 84478; 85014; 85018; 85025; 93005; 96361; 96374; 99285

== ENCOUNTER 2023-08-09 10:29 | Emergency (ER) | payer SELFPAY ==
[2023-08-09] VITALS (41 sets, daily range): BP systolic 58–134; BP diastolic 31–94; PULSE 95–124; RESP 10–22; TEMP 35.6–36.6; O2SAT 88–100; BMI 19.8
--- NOTE | 2023-08-09 10:39 | XR_ITS ---
The [address] [address] Patient Name: JOHNY BERUMEN MRN: [id number] date: 1965 Sex: M Assigned Patient Location: ER Current Patient Location: ED.MAIN Accession/Order Number: [id number] Exam Date: 08/09/2023 10:50 Report Date: 08/09/2023 11:38 At the request of: BELINDA MUHAMMAD Procedure: XR chest 1V EXAMINATION: XR chest 1V HISTORY: weak, hypotension COMPARISON: XR chest 08/03/2023 FINDINGS: LUNGS: Underexpanded lungs with mild stranding within medial right lung base. VASCULATURE: No increased pulmonary vasculature. PLEURA: No pneumothorax, effusion, or pleural thickening. CARDIAC: No cardiomegaly or cardiac silhouette abnormality. MEDIASTINUM: No visible mass or adenopathy. BONES: No fracture or visible bone lesion. OTHER: Right PICC line with tip at cavoatrial junction. XR/XR chest 1V IMPRESSION: 1. Underexpanded lungs with mild, new medial right basilar infiltrates versus atelectasis. 2. Stable right PICC line. Electronically authenticated by: JENNY ROSA Date: 08/09/2023 11:38
--- NOTE | 2023-08-09 10:39 | ECG_ITS ---
The [facility] Test Date: 2023-08-09 Pat Name: JOHNY BERUMEN Department: Room: - Gender: Male Roll Tester: : 1965 Requested By: BHARGAVI ALEXANDRA Order Number: [id number] Reading MD: CRISTOBAL HULL Measurements Intervals [place] Rate: 104 P: 75 [place]: 124 QRS: 84 QRSD: 88 T: 68 QT: 370 QTc: 430 Interpretive Statements 1120 Sinus tachycardia 9140 abnormal rhythm ECG Compared to ECG 08/03/2023 12:16:37 Ventricular premature complex(es) no longer present Electronically Signed On 08-09-2023 22:19:43 EDT by CRISTOBAL HULL
--- NOTE | 2023-08-09 10:40 | ED.GENADUL1 ---
HPI - General Adult General Chief complaint: Weakness Stated complaint: HYPOTENSION Time Seen by Provider: 08/09/23 10:33 History of Present Illness HPI narrative: 58-year-old male presents for generalized weakness. He was sent from [facility]. He is unable to provide us any history. He was found to be hypertensive there and for the paramedics as well. He has a PICC line and an ostomy. He does not have an indwelling Saleh catheter. It's not clear when his symptoms started. He had been seen here almost a week ago and had a negative workup at that time. he has DNR CCA status. Related Data Home Medications Medication Instructions Recorded Confirmed D5 % and 0.9 % sodium chloride 1,000 ml IV DAILY 08/03/23 08/09/23 acetaminophen 325 mg capsule 650 mg PO Q6H PRN pain 08/03/23 08/09/23 (Tylenol) cholecalciferol (vitamin D3) 125 5,000 unit PO QWEEK 08/03/23 08/09/23 mcg (5,000 unit) capsule loperamide 2 mg capsule 2 mg PO TID 08/03/23 08/09/23 magnesium oxide 400 mg PO DAILY 08/03/23 08/09/23 midodrine 2.5 mg tablet 2.5 mg PO TID 08/03/23 08/09/23 mirtazapine 30 mg tablet 30 mg PO QPM 08/03/23 08/09/23 ondansetron HCl 4 mg tablet 4 mg PO ACHS 08/03/23 08/09/23 pantoprazole 40 mg tablet,delayed 40 mg PO BID 08/03/23 08/09/23 release (Protonix) potassium chloride 20 mEq/15 mL 30 meq PO BID 08/03/23 08/09/23 oral liquid Allergies Allergy/AdvReac Type Severity Reaction Status Date / Time No Known Drug Allergies Allergy Verified 08/03/23 15:01 Review of Systems ROS Narrative unobtainable, patient poor historian [facility] Medical History (Updated 08/09/23 @ 15:14 by Kartik Souza MD) Social History Smoking status: Former smoker Exam Narrative Exam Narrative: Nurses note and vital signs reviewed and patient is not hypoxic. General: The patient appears generally weak and is not in any respiratory distress Skin: Warm, dry, no pallor noted. There is no rash noted. Head: Normocephalic, atraumatic Eye: Normal conjunctiva, no drainage Ears, Nose, Mouth, and Throat: oral mucosa is somewhat dry. Lips are dry. Cardiovascular: Regular Rate and Rhythm, heart rate in the upper 90s Respiratory: Patient is in no distress, no accessory muscle use, lungs are clear to auscultation, no wheezing, rales or rhonchi Back: non-tender GI: functioning ostomy in place. Midline chronic wound present without purulent drainage. No apparent tenderness. Musculoskeletal: The patient has no evidence of calf tenderness, no pitting edema Neurological: the patient follows commands but is not answering questions Psychiatric: unable to be assessed Constitutional Vital Signs, click to edit/add: Last Vital Signs Temp 97.0 F L 08/09/23 14:41 Pulse 107 H 08/09/23 14:41 Resp 18 08/09/23 14:41 BP 121/94 H 08/09/23 14:41 Pulse Ox 98 08/09/23 14:41 O2 Del Method Room Air 08/09/23 10:31 Course Vital Signs Vital signs: Vital Signs Pulse Rate 104 H 08/09/23 10:31 Respiratory Rate 16 08/09/23 10:31 Blood Pressure 60/40 L 08/09/23 10:31 Pulse Oximetry 100 08/09/23 10:31 Oxygen Delivery Method Room Air 08/09/23 10:31 Temperature 97.0 F L 08/09/23 14:41 Pulse Rate 107 H 08/09/23 14:41 Respiratory Rate 18 08/09/23 14:41 Blood Pressure 121/94 H 08/09/23 14:41 Pulse Oximetry 98 08/09/23 14:41 Oxygen Delivery Method Room Air 08/09/23 10:31 Medical Decision Making [facility] Narrative Medical decision making narrative: The patient presented with hypotension. His stool is heme positive and his hemoglobin is 5.1 with platelet count of twelve and a white count of 1.4. He was given IV Protonix and was typed and crossed for two units of blood and was transfused here in the emergency department. He was also given 3 L of IV fluid. His pressure has come up and we are able to titrate down the Levophed that he was started on. There is also question of an infiltrate on his chest x-ray and blood cultures were obtained and he was given IV Zosyn. Systolic blood pressure has been consistently in the 120s and 130s before the Levophed has been backed off. The patient and his significant other requesting transfer to [facility] and I've spoken to the physics technical officer there who accepts the patient in transfer. The patient is stable and agreeable for transfer. Differential Diagnosis Differential Diagnosis: upper gi bleed, lower gi bleed, pneumonia, sepsis, volume depletion, amarjit Medical Records Medical records reviewed: Yes I reviewed the patient's medical records Lab Data Lab results reviewed: Yes I reviewed the patient's lab results Labs: Lab Results 08/09/23 08/09/23 08/09/23 Range/Units 10:55 11:00 11:36 WBC 1.4 L (4.0-11.0) 10^3/uL RBC 1.96 L (4.70-6.10) 10^6/uL Hgb 5.1 L* (14.0-18.0) g/dL Hct 15.8 L* (42.0-54.0) % MCV 80.6 (80.0-94.0) fL MCH 26.0 (25.9-34.0) pg MCHC 32.3 (29.9-35.2) g/dL RDW 14.8 (11.0-15.0) % Plt Count 12 L* (150-450) 10^3/uL MPV 12.1 (9.5-13.5) fL Seg Neuts % (Manual) 76.0 Lymphocytes % (Manual) 22.0 (20.5-60.0) % Monocytes % (Manual) 2.0 (1.7-12.0) % Eosinophils % (Manual) 0.0 L (0.9-7.0) % Basophils % (Manual) 0.0 L (0.2-2.0) % Neutrophils # (Manual) 1.06 L (1.4-6.5) 10^3/uL Lymphocytes # (Manual) 0.30 L (1.20-3.80) 10^3/uL Monocytes # (Manual) 0.02 L (0.30-0.80) 10^3/uL Eosinophils # (Manual) 0.00 (0.00-0.70) 10^3/uL Basophils # (Manual) 0.00 (0.00-0.10) 10^3/uL Hypochromasia 2+ Ovalocytes 1+ Sodium 150 H (136-145) mmol/L Potassium 3.0 L (3.5-5.1) mmol/L Chloride 120 H (98-107) mmol/L Carbon Dioxide 13.2 L (21.0-32.0) mmol/L Anion Gap 19.8 BUN 65.0 H (7.0-18.0) mg/dL Creatinine 0.72 (0.70-1.30) mg/dL Est GFR ( Amer) >60 (>=60) Est GFR (Non-Af Amer) >60 (>=60) BUN/Creatinine Ratio 90.3 Glucose 176 H (74-106) mg/dL Lactate 11.1 H* (0.4-2.0) mmol/L Calcium 5.8 L* (8.5-10.1) mg/dL Troponin I High Sens <4.0 L (4.0-76.1) pg/mL Urine Color Yellow (YELLOW) Urine Clarity Clear (CLEAR) Urine pH 5.5 (5.0-9.0) Ur Specific [place] 1.025 (1.005-1.025) Urine Protein Trace (NEG/TRACE) mg/dL Urine Glucose (UA) Negative (NEGATIVE) mg/dL Urine Ketones 15 A (NEGATIVE) mg/dL Urine Occult Blood Small A (NEGATIVE) Urine Nitrite Negative (NEGATIVE) Urine Bilirubin Negative (NEGATIVE) Urine Urobilinogen 0.2 (0.2-1.0) EU/dL Ur Leukocyte Esterase Negative (NEGATIVE) Urine RBC 2-5 A (0-2) #/HPF Urine WBC 0-2 A (NONE SEEN) #/HPF Ur Squamous Epith Cells Rare (NONE/RARE) #/LPF Urine Crystals None seen (None Seen) #/HPF Urine Bacteria None seen (NONE SEEN) #/HPF Urine Casts None seen (NONE SEEN) #/LPF Urine Mucus None seen (NONE SEEN) Ur Culture Indicated? No Stool Occult Blood Blood Type O Positive Antibody Screen Negative Crossmatch See Detail 08/09/23 08/09/23 Range/Units 11:50 13:55 WBC (4.0-11.0) 10^3/uL RBC (4.70-6.10) 10^6/uL Hgb (14.0-18.0) g/dL Hct (42.0-54.0) % MCV (80.0-94.0) fL MCH (25.9-34.0) pg MCHC (29.9-35.2) g/dL RDW (11.0-15.0) % Plt Count (150-450) 10^3/uL MPV (9.5-13.5) fL Seg Neuts % (Manual) Lymphocytes % (Manual) (20.5-60.0) % Monocytes % (Manual) (1.7-12.0) % Eosinophils % (Manual) (0.9-7.0) % Basophils % (Manual) (0.2-2.0) % Neutrophils # (Manual) (1.4-6.5) 10^3/uL Lymphocytes # (Manual) (1.20-3.80) 10^3/uL Monocytes # (Manual) (0.30-0.80) 10^3/uL Eosinophils # (Manual) (0.00-0.70) 10^3/uL Basophils # (Manual) (0.00-0.10) 10^3/uL Hypochromasia Ovalocytes Sodium (136-145) mmol/L Potassium (3.5-5.1) mmol/L Chloride (98-107) mmol/L Carbon Dioxide (21.0-32.0) mmol/L Anion Gap BUN (7.0-18.0) mg/dL Creatinine (0.70-1.30) mg/dL Est GFR ( Amer) (>=60) Est GFR (Non-Af Amer) (>=60) BUN/Creatinine Ratio Glucose (74-106) mg/dL Lactate 14.2 H* (0.4-2.0) mmol/L Calcium (8.5-10.1) mg/dL Troponin I High Sens (4.0-76.1) pg/mL Urine Color (YELLOW) Urine Clarity (CLEAR) Urine pH (5.0-9.0) Ur Specific [place] (1.005-1.025) Urine Protein (NEG/TRACE) mg/dL Urine Glucose (UA) (NEGATIVE) mg/dL Urine Ketones (NEGATIVE) mg/dL Urine Occult Blood (NEGATIVE) Urine Nitrite (NEGATIVE) Urine Bilirubin (NEGATIVE) Urine Urobilinogen (0.2-1.0) EU/dL Ur Leukocyte Esterase (NEGATIVE) Urine RBC (0-2) #/HPF Urine WBC (NONE SEEN) #/HPF Ur Squamous Epith Cells (NONE/RARE) #/LPF Urine Crystals (None Seen) #/HPF Urine Bacteria (NONE SEEN) #/HPF Urine Casts (NONE SEEN) #/LPF Urine Mucus (NONE SEEN) Ur Culture Indicated? Stool Occult Blood Positive A Blood Type Antibody Screen Crossmatch Imaging Data Chest x-ray: Radiologist's impression: Procedure: XR chest 1V EXAMINATION: XR chest 1V HISTORY: weak, hypotension COMPARISON: XR chest 08/03/2023 FINDINGS: LUNGS: Underexpanded lungs with mild stranding within medial right lung base. VASCULATURE: No increased pulmonary vasculature. PLEURA: No pneumothorax, effusion, or pleural thickening. CARDIAC: No cardiomegaly or cardiac silhouette abnormality. MEDIASTINUM: No visible mass or adenopathy. BONES: No fracture or visible bone lesion. OTHER: Right PICC line with tip at cavoatrial junction. IMPRESSION: 1. Underexpanded lungs with mild, new medial right basilar infiltrates versus atelectasis. 2. Stable right PICC line. Electronically authenticated by: JENNY ROSA Date: 08/09/2023 11:38 ECG Data Attestation: I personally reviewed and interpreted this ECG as follows: (EKG on my interpretation shows sinus tachycardia without acute changes and a rate of 104.) Critical Care Time Critical Care Time Critical Care Time: Yes Total Critical Care Time: 100 Attestation: Due to the high probability of sudden and clinically significant deterioration in the patient's condition he/she required the highest level of my preparedness to intervene urgently I provided critical care time including documentation time, medication orders and management, reevaluation, vital sign assessment, ordering and reviewing of lab tests, ordering and reviewing of x-ray studies, and admission orders. Aggregate critical care time is 100 minutes including only time during which I was engaged in work directly related to his/her care and did not include time spent treating other patients simultaneously. Discharge Plan Discharge Chief Complaint: Weakness Clinical Impression: Acute hypotension, Anemia, Acute upper GI bleed Patient Disposition: [facility] Time of Disposition Decision: 15:14 Discharge Location: [facility] Condition: Fair Mode of Transportation: EMS
[2023-08-09] MEDS: 0.9 % SODIUM CHLORIDE 1,000 ML 1000 ML IV ×3 (11:04→11:55)
[2023-08-09 11:23] LABS: Mean Corpuscular HGB Conc 32.3 g/dL (29.9-35.2); Mean Corpuscular Volume 80.6 fL (80.0-94.0); Mean Platelet Volume 12.1 fL (9.5-13.5); Red Blood Count 1.96 10^6/uL (4.70-6.10); Red Cell Distribution Width 14.8 % (11.0-15.0); White Blood Count 1.4 10^3/uL (4.0-11.0)
[2023-08-09 11:28] LABS: Hematocrit 15.8 % (42.0-54.0); Hemoglobin 5.1 g/dL (14.0-18.0); Platelet Count 12 10^3/uL (150-450)
[2023-08-09 11:32] LABS: Anion Gap 19.8; BUN Creatinine Ratio 90.3; Carbon Dioxide 13.2 mmol/L (21.0-32.0); Chloride 120 mmol/L (98-107); Estimated GFR (African America >60 (>=60); Estimated GFR (Non-African Ame >60 (>=60); Glucose 176 mg/dL (74-106); Sodium 150 mmol/L (136-145); Troponin I High Sensitivity <4.0 pg/mL (4.0-76.1)
[2023-08-09 11:33] LABS: Bilirubin Urine NEGATIVE (NEGATIVE); Blood Urine SMALL (NEGATIVE); Clarity Urine CLEAR (CLEAR); Color Urine YELLOW (YELLOW); Glucose Urine UA NEGATIVE (NEGATIVE); Ketones Urine 15 mg/dL (NEGATIVE); Leukocyte Esterase Urine NEGATIVE (NEGATIVE); Nitrite Urine NEGATIVE (NEGATIVE); Protein Urine TRACE mg/dL (NEG/TRACE); Specific Gravity Urine 1.025 (1.005-1.025); Urobilinogen Urine 0.2 EU/dL (0.2-1.0); pH Urine 5.5 (5.0-9.0)
[2023-08-09 11:34] LABS: Calcium 5.8 mg/dL (8.5-10.1)
[2023-08-09 11:41] LABS: Lactate/Lactic Acid 11.1 mmol/L (0.4-2.0)
[2023-08-09 11:53] LABS: WBC Urine 0-2 #/HPF (NONE SEEN)
[2023-08-09 11:54] LABS: Bacteria Urine NONE SEEN #/HPF (NONE SEEN); Cast Seen? NONE SEEN #/LPF (NONE SEEN); Crystals Seen? None Seen #/HPF (None Seen); Mucus Urine NONE SEEN (NONE SEEN); Squamous Epithelial Cell Urine RARE #/LPF (NONE/RARE); Urine Culture Indicated NO
[2023-08-09 11:58] LABS: Occult Blood Positive
[2023-08-09] MEDS: PIPERACILLIN SODIUM/TAZOBACTAM 4.5 GM in 0.9 % SODIUM CHLORIDE 50 ML IV (12:27)
[2023-08-09] MEDS: LIDOCAINE 2% JELLY 10 ML UR (12:33)
[2023-08-09 12:48] LABS: Monocytes Absolute Manual 0.02 10^3/uL (0.30-0.80); Segmented Neut Absolute Manual 1.06 10^3/uL (1.4-6.5)
[2023-08-09 12:50] LABS: Hypochromasia 2+; Ovalocytes 1+
[2023-08-09] MEDS: PANTOPRAZOLE SODIUM 40 MG VIAL IV (13:23)
[2023-08-09] MEDS: ONDANSETRON PF 4 MG/2 ML VIAL IV (13:23)
[2023-08-09] MEDS: NOREPINEPHRINE BITARTRATE 4 MG in DEXTROSE 5 % IN WATER 250 ML 15.24 MG IV (13:33)
--- NOTE | 2023-08-09 13:46 | ECG_ITS ---
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
[2023-08-09 14:48] LABS: Lactate/Lactic Acid 14.2 mmol/L (0.4-2.0)
[2023-08-09] MEDS: PROMETHAZINE HCL 25 MG/ML VIAL 12.5 MG IV (15:06)
== END 2023-08-09 17:19 | disposition short-term general hospital (02) ==
PROVIDERS: Emergency Provider Emergency Medicine; PCP Family Medicine
DX: I95.9 Hypotension, unspecified (principal); D64.9 Anemia, unspecified; K92.2 Gastrointestinal hemorrhage, unspecified; Z66 Do not resuscitate; Z79.899 Other long term (current) drug therapy; Z87.891 Personal history of nicotine dependence; Z93.2 Ileostomy status
CPT/HCPCS: 36415; 36430; 36592; 71045; 80048; 81001; 83605; 84484; 85027; 86850; 86900; 86901; 86920; 87040; 93005; 96361; 96365; 96375; 99285; G0328; P9016